=== PATIENT | female | born 1990 | race Caucasian/White ===

== ENCOUNTER → 2016-04-03 | Outpatient (CLI) | payer BC ==
[~2016-04-03] MED LIST: ACET50TA PO; IBUP80TA PO; VITAPRTA PO
--- NOTE | 2016-04-03 10:06 | REP ---
Obstetric sonography: History: Supervision of for anatomy. Findings: Scanning through the gravid uterus demonstrates a viable single intrauterine gestation in a cephalic lie. motion is observed and heart rate is recorded at 136 beats per minute. An anterior grade 0 placenta is seen without evidence of previa. Amniotic fluid is subjectively normal. Closed cervical length is 3.6 cm measured transabdominally. No extrauterine abnormality is observed. No anomaly is seen. spine visualization is less than optimal today due to position. The following additional anatomic structures are identified and felt to be sonographically unremarkable: cranium, choroid plexus, cavum, cerebellum and posterior fossa, face and profile, lungs, four-chamber heart with left and right ventricular outflow tract views, diaphragm, left-sided stomach, abdominal wall cord insertion, three-vessel umbilical cord, kidneys and bladder, upper and lower extremities. Biometry chart: BPD 4.2 cm = 18 weeks 5 days Head circumference 15.0 cm = 18 weeks 1 day Abdominal circumference 12.5 cm = 18 weeks 1 day Femur length 2.7 cm = 18 weeks 0 days Humeral length 2.5 cm = 17 weeks 6 days Cerebellar diameter 1.6 cm = 16 weeks 4 days HC/AC ratio normal 1.20 cephalic index normal 0.79 estimated weight 224 grams 0 pounds 7 ounces 51st percentile for 18 weeks 0 days. Impression: Viable single intrauterine gestation at 17 weeks 6 days by today's composite sonographic criteria. PEGGY by today's sonography September 05, 2016. spine less than optimally seen. Otherwise complete anatomic survey. Signed by Charan Bonds MD 04/03/2016 10:25 A
== END | disposition home or self-care (01) ==
LOC: M RAD 08:54
PROVIDERS: ATTEND Advanced Practice Midwife
DX: Z34.82 Encounter for supervision of other normal pregnancy, second trimester (principal); Z36 Encounter for antenatal screening of mother; Z3A.17 17 weeks gestation of pregnancy

== ENCOUNTER → 2016-04-29 | Outpatient (CLI) | payer BC ==
--- NOTE | 2016-04-29 12:08 | REP ---
Clinical: Anatomical evaluation. Comparison: 04/03/2016 . Findings: Examination demonstrates a single live intrauterine in cephalic presentation. motion is identified by technologist. Placenta is noted anteriorly and grade zero without evidence for placenta previa or abruption. Amniotic fluid volume is normal. Cervix measures L 3.7 cm in length and appears closed. Nuchal cord cannot be excluded Gestational age by LMP 21 weeks 5 days with PEGGY 09/04/2016 . Gestational age by current measurements 22 weeks 1 day with PEGGY 09/01/2016 . FHR equals 145 beats per minute. Estimated weight 464 grams ( 54th percentile). Anatomical assessment demonstrates normal structures including cranium, choroid plexus, cavum, cerebellum/posterior fossa, lungs, four-chamber heart/ventricular outflow tracts, diaphragm, stomach, cord insertion/three-vessel cord, kidneys/bladder, and spine. Impression: Single live intrauterine in cephalic presentation demonstrating appropriate interval growth. In conjunction with prior examination anatomical assessment is complete and normal. Nuchal cord cannot be excluded. Signed by Anand Marquis MD 04/29/2016 11:59 A
== END | disposition home or self-care (01) ==
LOC: M RAD 11:12
PROVIDERS: ATTEND Specialist
DX: Z34.83 Encounter for supervision of other normal pregnancy, third trimester (principal); Z36 Encounter for antenatal screening of mother; Z3A.22 22 weeks gestation of pregnancy

== ENCOUNTER → 2016-06-03 | Outpatient (CLI) | payer BC ==
[2016-06-03 11:53] LABS: MEAN CORPUSCULAR HEMOGLOBIN 29.3 pg (27.0-33.0); MEAN CORPUSCULAR HGB CONC 33.1 g/dl (32.0-36.5); MEAN CORPUSCULAR VOLUME 88.5 fl (80.0-96.0); RED CELL DISTRIBUTION WIDTH 12.8 % (11.5-14.5); WHITE BLOOD COUNT 6.9 K/mm3 (4.0-10.0)
== END ==
LOC: M LRY 08:18
PROVIDERS: ATTEND Advanced Practice Midwife
DX: Z34.82 Encounter for supervision of other normal pregnancy, second trimester (principal); Z36 Encounter for antenatal screening of mother; Z3A.00 Weeks of gestation of pregnancy not specified

== ENCOUNTER → 2016-08-05 | Outpatient (REF) | payer BC | LOC: M LAB REF 13:03 | PROVIDERS: ATTEND Advanced Practice Midwife | DX: Z34.83 Encounter for supervision of other normal pregnancy, third trimester (principal); Z36 Encounter for antenatal screening of mother; Z3A.00 Weeks of gestation of pregnancy not specified ==

== ENCOUNTER 2016-09-09 02:44 | Inpatient (IN) | payer BC ==
[2016-09-09] VITALS (37 sets, daily range): BP systolic 100–143; BP diastolic 57–90
[~2016-09-09] VITALS: Ht 154.9 cm; Wt 78.0 kg
[2016-09-09] MEDS ORDERED: LACTATED RINGER'S 1000 ML IV STA (03:23)
[2016-09-09] MEDS ORDERED: LR 1,000 ML IV SCH ×2 (03:23→10:43)
[2016-09-09 03:43] LABS: MEAN CORPUSCULAR HEMOGLOBIN 26.3 pg (27.0-33.0); MEAN CORPUSCULAR HGB CONC 32.2 g/dl (32.0-36.5); MEAN CORPUSCULAR VOLUME 81.7 fl (80.0-96.0); RED CELL DISTRIBUTION WIDTH 15.3 % (11.5-14.5); WHITE BLOOD COUNT 13.2 K/mm3 (4.0-10.0)
[2016-09-09] MEDS ORDERED: FENTANYL 2MCG/ML ROPIVACAINE 0.2% IN 0.9% NACL 200ML IVBAG As Ordered ONE (04:15)
[2016-09-09] MEDS ORDERED: REFRIGERATOR IV KEYS XX PRN (04:31)
[2016-09-09] MEDS ORDERED: NALOXONE INJ 0.4 MG/1 ML VIAL (J2310) IV PRN (04:31)
[2016-09-09] MEDS ORDERED: diphenhydrAMINE INJ 50MG/ML VIAL (J1200) IV PRN (04:31)
[2016-09-09] MEDS ORDERED: ONDANSETRON 4MG/2ML VIAL (J2405) IV PRN ×2 (04:31→10:45)
[2016-09-09] MEDS ORDERED: EPIDURAL/PCA KEYS XX PRN (04:31)
[2016-09-09] MEDS ORDERED: FENTANYL/ROPIVACAINE/NACL BAG 200 ML EPIDURAL SCH (04:31)
[2016-09-09] MEDS ORDERED: EPIDURAL COMMENT XX SCH (04:31)
[2016-09-09] MEDS ORDERED: ePHEDrine SULFATE 25 MG/5 ML(5MG/ML) SYRINGE IV PRN (04:31)
[2016-09-09] MEDS ORDERED: LACTATED RINGER'S 1000 ML IV PRN (04:31)
--- NOTE | 2016-09-09 05:12 | HPE ---
DATE OF ADMISSION: 09/09/2016 26-year-old, (G) 2, para (P) 1 female, at 40-5/7 weeks gestation by last menstrual period (LMP) consistent with 8 week ultrasound, estimated date of confinement (EDC) 09/04/2016, presents with regular contractions every 3-4 minutes for the last several hours. Denies vaginal bleeding . Contractions increased in intensity. COURSE: The patient initiated care at 8 weeks gestation, 01/28/2016. Her first trimester blood pressure 124/82. Her course was unremarkable. OBSTETRICAL HISTORY: July 2014, 41 week vaginal delivery of a 5 pound 13 ounce female infant. No complications. MEDICAL HISTORY: None. SURGICAL HISTORY: 1. Appendectomy. 2. Tonsillectomy. 3. Knee surgery. ALLERGIES: None. SOCIAL HISTORY: Father of the baby is involved with the patient. She denies cigarettes, alcohol or drug use. FAMILY HISTORY: Noncontributory. PHYSICAL EXAMINATION: Blood pressure 124/80. Pulse 86. She appears uncomfortable. Head and neck exam normal. Lungs clear. Heart regular rate and rhythm. Abdomen nontender and gravid. heart tones category 1. Sterile vaginal exam: 4 cm, 100% and minus 2 station, vertex intact. Extremities nontender. LABORATORIES: Blood type O positive. Rubella immune. RPR nonreactive. Hepatitis B and C negative. HIV negative. Diabetes screen 93. GBS negative on 08/05/2016. ASSESSMENT: 26-year-old, 2, para 1 female, at 40-5/7 weeks gestation, presents in labor. The patient is admitted on 09/09/2016.
[2016-09-09] MEDS ORDERED: OXYTOCIN 30 UNITS IN 0.9% NaCl 500ML IV BAG (J2590) As Ordered ONE (07:32)
[2016-09-09] MEDS ORDERED: OXYTOCIN DRIP 30 UNITS in APPROPRIATE DILUENT 1 EA IV ONE (10:43)
[2016-09-09] MEDS ORDERED: DOCUSATE SODIUM 100 MG CAP PO PRN (10:45)
[2016-09-09] MEDS ORDERED: ACETAMINOPHEN 500 MG TAB PO PRN (10:45)
[2016-09-09] MEDS ORDERED: PROMETHAZINE 25 MG TAB PO PRN (10:45)
[2016-09-09] MEDS ORDERED: RHOGAM 300 MCG (1500 IU) INJ (J2790) IM SCH (10:45)
[2016-09-09] MEDS ORDERED: MEASLES,MUMPS,RUBELLA VACCINE INJ (MMR-II) (90707) SC SCH (10:45)
[2016-09-09] MEDS ORDERED: DIBUCAINE 1% OINTMENT 30GM TOP PRN (10:45)
[2016-09-09] MEDS: IBUPROFEN 800 MG TAB PO PRN ×2 (14:19→23:57)
[2016-09-10 05:59] VITALS: BP 130/84
[2016-09-10] MEDS ORDERED: PRENATAL VITAMINS CHEWABLE TABLET PO SCH (09:00)
== END 2016-09-10 14:25 | disposition home or self-care (01) | DRG 560 ==
LOC: M LDO 02:44 → M LDI 03:18 → M OBS 12:12
PROVIDERS: ADMIT Specialist; ATTEND Specialist
PROC: 10E0XZZ Delivery of Products of Conception, External Approach (ICD-10-PCS; principal; 2016-09-09)
PROC: 0HQ9XZZ Repair Perineum Skin, External Approach (ICD-10-PCS; 2016-09-09)
DX: O48.0 Post-term pregnancy (principal); O69.2XX0 Labor and delivery complicated by other cord entanglement, with compression, not applicable or unspecified; Z37.0 Single live birth; Z3A.40 40 weeks gestation of pregnancy; O70.0 First degree perineal laceration during delivery

== ENCOUNTER → 2017-04-08 | Outpatient (REF) | payer BC ==
[2017-04-08 14:33] LABS: THYROID STIMULATING HORMONE 0.635 uIU/ML (0.358-3.740)
== END ==
LOC: M SFHCLERA 08:13
DX: F43.23 Adjustment disorder with mixed anxiety and depressed mood (principal)

== ENCOUNTER → 2017-04-28 | Outpatient (REF) | payer BC ==
[2017-04-29 15:23] LABS: CHLAMYDIA DNA AMPLIFICATION NEGATIVE (NEGATIVE); GC DNA AMPLIFICATION NEGATIVE (NEGATIVE)
== END ==
LOC: M LAB REF 13:19
DX: Z11.3 Encounter for screening for infections with a predominantly sexual mode of transmission (principal)
CPT/HCPCS: 87591

== ENCOUNTER → 2017-04-29 | Outpatient (REF) | payer BC | LOC: M LAB REF 13:32 | DX: Z12.4 Encounter for screening for malignant neoplasm of cervix (principal) | CPT/HCPCS: G0123 ==

== ENCOUNTER → 2017-05-05 | Outpatient (CLI) | payer BC ==
[2017-05-06 10:40] LABS: HEPATITIS B SURFACE ANTIGEN NEGATIVE (NEGATIVE)
[2017-05-06 10:50] LABS: HEPATITIS C VIRUS ABY INDEX 0.1 INDEX (<0.8)
[2017-05-06 10:51] LABS: HIV 1&2 SCREEN CENTAUR NEGATIVE (NEGATIVE)
== END ==
LOC: M LRY 07:53
DX: Z11.3 Encounter for screening for infections with a predominantly sexual mode of transmission (principal)
CPT/HCPCS: 87340

== ENCOUNTER → 2017-05-21 | Outpatient (REF) | payer BC | LOC: M SFHCLERA 08:44 | DX: F90.0 Attention-deficit hyperactivity disorder, predominantly inattentive type (principal) ==

== ENCOUNTER → 2018-01-12 | Outpatient (REF) | payer OTHER ==
[2018-01-12 11:44] LABS: BASO % 0.4 % (0.0-1.0); EOS # 0.6 10^3/uL (0.0-0.50); EOS % 6.5 % (0.0-3.0); HEMATOCRIT 41.9 % (36.0-47.0); HEMOGLOBIN 14.1 g/dl (12.0-15.5); IMMATURE GRANULOCYTE % 0.4 % (0-3.0); LYMPH # 2.9 10^3/uL (1.5-6.5); LYMPH % 34.1 % (24.0-44.0); MEAN CORPUSCULAR HEMOGLOBIN 30.1 pg (27.0-33.0); MEAN CORPUSCULAR HGB CONC 33.7 g/dl (32.0-36.5); MEAN CORPUSCULAR VOLUME 89.5 fl (80.0-96.0); MONO # 0.6 10^3/uL (0.0-0.8); MONO % 7.3 % (0.0-5.0); NEUTROPHILS # 4.4 10^3/uL (1.8-7.7); NEUTROPHILS % 51.3 % (36.0-66.0); PLATELET COUNT, AUTOMATED 271 10^3/uL (150-450); RED BLOOD COUNT 4.68 10^6/uL (4.00-5.40); RED CELL DISTRIBUTION WIDTH 12.2 % (11.5-14.5); WHITE BLOOD COUNT 8.5 10^3/uL (4.0-10.0)
[2018-01-12 12:21] LABS: ALBUMIN 4.5 GM/DL (3.2-5.2); ALBUMIN/GLOBULIN RATIO 1.41 (1.00-1.93); ALKALINE PHOSPHATASE 73 U/L (45-117); ALT/SGPT 19 U/L (12-78); ANION GAP 4 MEQ/L (8-16); AST/SGOT 13 U/L (7-37); BILIRUBIN,TOTAL 0.2 MG/DL (0.2-1.0); BLOOD UREA NITROGEN 15 MG/DL (7-18); CARBON DIOXIDE LEVEL 28 MEQ/L (21-32); CHLORIDE LEVEL 104 MEQ/L (98-107); CREATININE FOR GFR 0.67 MG/DL (0.55-1.30); FREE T4 0.92 NG/DL (0.76-1.46); GLOMERULAR FILTRATION RATE > 60.0 (>60); GLUCOSE, FASTING 101 MG/DL (70-100); POTASSIUM SERUM 4.5 MEQ/L (3.5-5.1); SODIUM LEVEL 136 MEQ/L (136-145); THYROID STIMULATING HORMONE 0.925 uIU/ML (0.358-3.740); TOTAL PROTEIN 7.7 GM/DL (6.4-8.2)
== END ==
LOC: M SFHCCLAY 07:57
DX: F98.8 Other specified behavioral and emotional disorders with onset usually occurring in childhood and adolescence (principal); R00.0 Tachycardia, unspecified

== ENCOUNTER → 2018-05-03 | Outpatient (CLI) | payer OTHER ==
[~2018-05-03] MED LIST changes: -ACET50TA PO; +MAPA500T2 PO
== END ==
LOC: M SMT 10:36
PROVIDERS: ATTEND Advanced Practice Midwife
DX: Z12.4 Encounter for screening for malignant neoplasm of cervix (principal)

== ENCOUNTER 2019-09-08 10:29 | Emergency (ER) | payer OTHER ==
[~2019-09-08] VITALS: Ht 154.9 cm; Wt 57.7 kg
[~2019-09-08 10:29] MED LIST changes: +ADDE10TA PO; +LORA10CA PO; +PERC5TAB12 PO
[2019-09-08] MEDS ORDERED: AMOX/K (10:37)
[2019-09-08] MEDS ORDERED: FLON1SPR (10:37)
[2019-09-08] MEDS ORDERED: ACETAMINOPHEN 500 MG TAB PO ONE (11:15)
[2019-09-08 11:22] LABS: BASO % 0.1 % (0.0-1.0); EOS # 0.1 10^3/uL (0.0-0.5); HEMATOCRIT 40.5 % (36.0-47.0); HEMOGLOBIN 13.4 g/dl (12.0-15.5); LYMPH # 1.8 10^3/uL (1.5-5.0); LYMPH % 24.7 % (24.0-44.0); MEAN CORPUSCULAR HEMOGLOBIN 28.7 pg (27.0-33.0); MEAN CORPUSCULAR HGB CONC 33.1 g/dl (32.0-36.5); MEAN CORPUSCULAR VOLUME 86.7 fl (80.0-96.0); MONO # 0.5 10^3/uL (0.0-0.8); MONO % 6.3 % (0.0-5.0); NEUTROPHILS # 4.9 10^3/uL (1.5-8.5); NEUTROPHILS % 67.6 % (36.0-66.0); PLATELET COUNT, AUTOMATED 241 10^3/uL (150-450); RED BLOOD COUNT 4.67 10^6/uL (4.00-5.40); WHITE BLOOD COUNT 7.2 10^3/uL (4.0-10.0)
--- NOTE | 2019-09-08 11:31 | REP ---
Right index finger series: Four views. History: Pain and swelling after laceration 3 days previous. Findings: Four views of the right index finger demonstrate normal bones and joints. No soft tissue foreign body is seen. No fractures noted. There is some mild dorsal soft tissue swelling at the PIP joint. Impression: No fracture or opaque foreign body. Electronically Signed by Charan Bonds MD 09/08/2019 11:23 A
[2019-09-08 11:40] LABS: ERYTHROCYTE SEDIMENTATION RATE 5 mm/hr (0-20)
[2019-09-08 11:56] LABS: BLOOD UREA NITROGEN 13 MG/DL (7-18); C REACTIVE PROTEIN QUANTITATIV < 0.30 MG/DL (0.00-0.30); CALCIUM LEVEL 9.2 MG/DL (8.5-10.1); CARBON DIOXIDE LEVEL 25 MEQ/L (21-32); CHLORIDE LEVEL 108 MEQ/L (98-107); CREATININE FOR GFR 0.73 MG/DL (0.55-1.30); GLOMERULAR FILTRATION RATE > 60.0 (>60); GLUCOSE, FASTING 90 MG/DL (70-100); SODIUM LEVEL 142 MEQ/L (136-145)
[2019-09-08] MEDS ORDERED: CEFTAROLINE FOSAMIL 600 MG in D5W MINI-BAG PLUS 50 ML IV ONE (12:45)
[2019-09-08] MEDS ORDERED: KETOROLAC 30 MG/ML 1ML VIAL IV ONE (13:00)
[2019-09-08] MEDS ORDERED: VANCOMYCIN HCL 1,250 MG in D5W 250 ML IV ONE (13:00)
[2019-09-08] MEDS ORDERED: VANCOMYCIN HCL 750 MG, VIAL MATE ADAPTER 1 EACH in D5W 250 ML IV ONE (13:00)
[2019-09-08] MEDS ORDERED: VANCOMYCIN HCL 500 MG in D5W MINI-BAG PLUS 100 ML IV ONE (13:00)
[2019-09-08] MEDS ORDERED: BACT800T5 PO (15:26)
--- NOTE | 2019-09-08 15:55 | HPE ---
DATE OF ADMISSION: 09/08/2019 CHIEF COMPLAINT: Right index finger laceration. 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 Three days ago now she was working at the [employer]. She caught her finger on the middle aspect of a bookshelf. She had a laceration there. It took about 30 minutes for the bleeding to stop. She was seen in [facility] that evening. They apparently cleaned this and used Dermabond to close the wound. The following day things were fine with the finger. On Thursday, which would be yesterday, she experienced some pain and sanguinous drainage from the finger. By her own recollection, there was a physician who did some sort of drainage procedure, although she did not look. It sounds like perhaps there was a needle aspiration. There was no obvious pus that she states but apparently some sanguineous drainage. She had Tdap on Thursday after this occurred. The physician that cleaned it did not send away any cultures. The patient was placed on Augmentin for antibiotics. They present today with increased pain overlying the incision at the distal interphalangeal (DIP) joint. Apparently, her grandmother had an infected tenosynovitis that required urgent surgical debridement. PAST MEDICAL HISTORY: Includes attention deficit hyperactivity disorder (ADHD). MEDICATIONS: Include Adderall and loratadine. ALLERGIES: No known drug allergies. PAST SURGICAL HISTORY: Includes: 1. Appendectomy. 2. Tubal ligation. 3. Tonsillectomy. 4. Left knee anterior cruciate ligament (ACL) surgery. Apparently this became infected possibly with methicillin-resistant Staphylococcus aureus (MRSA) at the time. SOCIAL HISTORY: She has nicotine dependence. She is trying to quit smoking by using nicotine vaporizer, a JUUL. She does not use alcohol. She does not use intravenous (IV) drugs. PHYSICAL EXAMINATION: This is a 29-year-old female. She seems a little bit anxious. Vital signs: Temperature highest recorded 98.9, other temperature 98.2. Blood pressure 151/89, pulse rate 93, highest pulse rate 136, respiratory rate 16, 100% saturation on room air. Inspection of the right upper extremity reveals a small 1.5 cm laceration on the dorsum longitudinally of the proximal interphalangeal (PIP) joint. There is some mild swelling of the area but no redness, warmth, or active drainage. She has slightly diminished sensation over the tip as well as the radial side of the finger, otherwise normal on the ulnar side, and this is only distal to the laceration. The nail appears normal. No subungual hematomas or other nailbed injuries. She has no pain to palpation at the PIP joint. The fingers held in full extension. There is no pain along the flexor tendon. No obvious dactylitis of the finger. No pain of the digit with passive extension; however, when trying to flex the digit it is exquisitely tender, both when I tried to flex the PIP as well as the DIP joints. There seems to be more pain at the DIP joint to palpation, but aside from pain with passive range of motion of the finger, there do not appear to be any other signs of active infection or septic arthritis. Laboratory examination reveals white blood cell count 7.2, neutrophil percentage 67, monocyte percent 6.3, lymphocyte percent 24.7. ESR is 5. CRP under 0.3. Radiographs of the finger revealed no fracture or opaque foreign body. No soft tissue foreign body is seen. There is some mild dorsal soft tissue swelling at the PIP joint. ASSESSMENT AND PLAN: This 29-year-old female has laceration to the dorsal aspect of the right index finger. This does not seem to be an acute pyogenic flexor tenosynovitis. I think the next best step would be to begin treatment with intravenous antibiotics that would cover MRSA given her possible past history of that. In addition, due to possible concern for DIP joint or possibly even PIP joint septic arthritis or other pathologies about the finger, given her high levels of pain on exam, I think it would be molina to obtain a stat MRI with and without contrast to rule out any other intra-articular process or other pathologies about the finger. Overall, I do not believe that this requires acute urgent surgical intervention, I will followup after the MRI has been performed.
[2019-09-08] MEDS ORDERED: PROHANCE 279.3MG/ML 15ML VIAL As Ordered ONE (18:23)
[2019-09-08 18:51] VITALS: BP 120/82
[2019-09-08] MEDS ORDERED: NORCO, ANEXSIA 5/325MG TABLET (HYDROcodone/ACETAMINOPHEN) PO ONE (19:00)
[2019-09-08] MEDS ORDERED: KEFL500C17 PO (19:37)
--- NOTE | 2019-09-08 21:35 | IPN ---
DATE: 09/08/2019 CHIEF COMPLAINT: Followup MRI right index finger. HISTORY OF THE PRESENT ILLNESS: This is a 29-year-old female, presents with increased pain and swelling of the right index finger after a laceration. I ordered a stat MRI to assess her signs and symptoms of infection or other abnormalities of her finger, given difficulties with passive flexion of the finger. MRI was reviewed by myself, as well as the radiologist stitch bonding machine drawer in. Per Dr. Agustin Finnegan, the radiologist stitch bonding machine drawer in, this shows a dorsal laceration to the proximal interphalangeal (PIP) joint area. Swelling and increased signal change, mild enhancement over the dorsum of the PIP and DIP joints consistent with cellulitis. No osteomyelitis. No obvious joint effusion. Overall, I agree with the radiologist's interpretation. I see no evidence of pyogenic flexor tenosynovitis. Tendons appear to be intact. ASSESSMENT AND PLAN: This 29-year-old female appears to have mild cellulitis to her right index finger, as well as a laceration, but appears clean and dry with the wound edges well opposed. I recommend oral antibiotic management, including cefazolin 500 mg by mouth four times a day for at least 5 days for Gram-positive coverage, as well as possibly Bactrim for Gram-negative and MRSA coverage given her possible history of MRSA infection in the past. I recommended followup in clinic within 1-3 days and counseling on red flag symptoms and when to return to the emergency department. I have communicated these recommendations and findings to Pita Roman, the Physician Dental Technician Apprentice, taking care of Ms. Bolivar.
--- NOTE | 2019-09-09 11:04 | REP ---
MRI RIGHT HAND WITHOUT AND WITH INTRAVENOUS CONTRAST: REPEAT DICTATION. HISTORY: Pain and swelling, limited range of motion right index finger. Laceration times 1 week. Redness and numbness. Preliminary report is provided at the time of the exam by Aubree. CONTRAST DOSE: 11 mL of intravenous ProHance. MRI FINDINGS: There is soft-tissue swelling and irregularity at the dorsal aspect of the index finger at the DIP, and to a lesser extent PIP joints. Changes consistent with cellulitis are seen here. No abscess is appreciated. No MR evidence of foreign body. No extensor tendon disruption is appreciated. Cortical and medullary bone signal intensity are normal. IMPRESSION: Soft-tissue swelling, edema, and cellulitis pattern. No abscess, osteomyelitis, or MR evidence of foreign body. Electronically Signed by Charan Bonds MD 09/09/2019 11:13 A
== END 2019-09-08 19:52 | disposition home or self-care (01) ==
LOC: M ED 10:29
DX: L03.011 Cellulitis of right finger (principal); S61.210A Laceration without foreign body of right index finger without damage to nail, initial encounter; M79.644 Pain in right finger(s); W26.8XXA Contact with other sharp object(s), not elsewhere classified, initial encounter; Y92.89 Other specified places as the place of occurrence of the external cause; Y93.89 Activity, other specified; Y99.0 Civilian activity done for income or pay; F41.9 Anxiety disorder, unspecified; F90.9 Attention-deficit hyperactivity disorder, unspecified type; Z86.14 Personal history of Methicillin resistant Staphylococcus aureus infection; F17.200 Nicotine dependence, unspecified, uncomplicated; Z79.899 Other long term (current) drug therapy
CPT/HCPCS: 73140; 73220; 80048; 85025; 85652; 86140; 87040; 96365; 96366; 96375; 99284; A9576; J1885; J3370

== ENCOUNTER → 2022-07-08 | Outpatient (REF) | payer OTHER ==
[~2022-07-08] MED LIST changes: +AMOX/K; +BACT800T5 PO; +FLON1SPR; +KEFL500C17 PO
== END ==
LOC: M SFHCWAGY 17:14
PROVIDERS: ATTEND Specialist
DX: Z12.4 Encounter for screening for malignant neoplasm of cervix (principal); R87.610 Atypical squamous cells of undetermined significance on cytologic smear of cervix (ASC-US)
CPT/HCPCS: 87624; G0123

== ENCOUNTER → 2022-07-28 | Outpatient (REF) | payer OTHER ==
[2022-07-28 18:23] LABS: BASO % 0.4 % (0.0-1.0); EOS # 0.1 10^3/uL (0.0-0.5); EOS % 1.7 % (0.0-3.0); HEMATOCRIT 37.1 % (36.0-47.0); HEMOGLOBIN 12.5 g/dl (12.0-15.5); LYMPH # 1.8 10^3/uL (1.5-5.0); LYMPH % 33.5 % (24.0-44.0); MEAN CORPUSCULAR HEMOGLOBIN 30.1 pg (27.0-33.0); MEAN CORPUSCULAR HGB CONC 33.7 g/dl (32.0-36.5); MEAN CORPUSCULAR VOLUME 89.4 fl (80.0-96.0); MONO # 0.4 10^3/uL (0.0-0.8); MONO % 8.2 % (2.0-8.0); PLATELET COUNT, AUTOMATED 223 10^3/uL (150-450); RED BLOOD COUNT 4.15 10^6/uL (4.00-5.40); WHITE BLOOD COUNT 5.3 10^3/uL (4.0-10.0)
[2022-07-28 18:51] LABS: ALBUMIN 4.3 G/DL (3.2-5.2); ALKALINE PHOSPHATASE 54 U/L (46-116); ALT/SGPT 21 U/L (7.0-40); AST/SGOT 20 U/L (<34); BILIRUBIN,TOTAL 0.4 MG/DL (0.3-1.2); BLOOD UREA NITROGEN 11 MG/DL (9-23); CALCIUM LEVEL 8.8 MG/DL (8.5-10.1); CARBON DIOXIDE LEVEL 28 MMOL/L (20-31); CHLORIDE LEVEL 104 MMOL/L (98-107); GLOMERULAR FILTRATION RATE > 60.0 (>60); GLUCOSE, FASTING 101 MG/DL (60-100); POTASSIUM SERUM 4.5 MMOL/L (3.5-5.1); SODIUM LEVEL 138 MMOL/L (136-145); TOTAL PROTEIN 6.9 G/DL (5.7-8.2)
== END ==
LOC: M SFHCCLAY 09:58
PROVIDERS: ATTEND Nurse Practitioner Family
DX: F90.0 Attention-deficit hyperactivity disorder, predominantly inattentive type (principal); F17.290 Nicotine dependence, other tobacco product, uncomplicated; L73.9 Follicular disorder, unspecified

== ENCOUNTER → 2024-06-07 | Outpatient (CLI) | payer BC | LOC: M WHC 09:25 | PROVIDERS: ATTEND Specialist | DX: N63.0 Unspecified lump in unspecified breast (principal) | CPT/HCPCS: 76642; 77066; G0279 ==